=== PATIENT | female | born 2000 | race Caucasian/White ===

== ENCOUNTER 2019-06-15 11:07 | Day surgery (SDC) | payer OTHER ==
[~2019-06-15 11:07] MED LIST: CEFAZOLIN SODIUM 2 GM in DEXTROSE 5%-WATER 100 ML IV PRN
[2019-06-15 12:14] LABS: HEMATOCRIT 38.8 % (36.0-47.0); MEAN CORPUSCULAR HEMOGLOBIN 28.3 pg (27.0-33.4); MEAN CORPUSCULAR HGB CONC 33.6 g/dL (32.0-36.0); MEAN CORPUSCULAR VOLUME 84 fl (80-97); PLATELET COUNT 268 10^3/uL (150-450); RED CELL DISTRIBUTION WIDTH 12.5 % (11.5-14.0); WHITE BLOOD COUNT 7.2 10^3/uL (4.0-10.5)
[2019-06-15 12:37] LABS: ANION GAP 9 (5-19); BLOOD UREA NITROGEN 12 mg/dL (7-20); CALCIUM 9.6 mg/dL (8.4-10.2); CARBON DIOXIDE 26 mmol/L (22-30); CHLORIDE 103 mmol/L (98-107); GLUCOSE 82 mg/dL (75-110); POTASSIUM 4.1 mmol/L (3.6-5.0)
--- NOTE | 2019-06-15 12:44 | EKG REPORT ---
SEVERITY:- OTHERWISE NORMAL ECG - SINUS BRADYCARDIA : Confirmed by: Mark May MD 15-Jun-2019 12:43:06
--- NOTE | 2019-06-15 12:45 | RADIOLOGY REPORT (SQ) ---
EXAM DESCRIPTION: CHEST SINGLE VIEW COMPLETED DATE/TIME: 06/15/2019 12:32 pm REASON FOR STUDY: PREOP COMPARISON: None. EXAM PARAMETERS: NUMBER OF VIEWS: One view. TECHNIQUE: Single frontal radiographic view of the chest acquired. RADIATION DOSE: NA LIMITATIONS: None. FINDINGS: LUNGS AND PLEURA: No opacities, masses or pneumothorax. No pleural effusion. MEDIASTINUM AND HILAR STRUCTURES: No masses. Contour normal. HEART AND VASCULAR STRUCTURES: Heart normal in size. Normal vasculature. BONES: No acute findings. HARDWARE: None in the chest. OTHER: No other significant finding. IMPRESSION: NO ACUTE RADIOGRAPHIC FINDING IN THE CHEST. TECHNICAL DOCUMENTATION: JOB ID: [id number] [employer]- All Rights Reserved Reading location - IP/workstation name: [email or web address]
[2019-06-15] MEDS ORDERED: FAMOTIDINE INJ/PF 20 MG/2 ML SDV IV ONE (13:38)
[2019-06-15] MEDS ORDERED: SCOPOLAMINE HYDROBROMIDE 1.5 MG PATCH.TD72 ONE (13:38)
[2019-06-15] MEDS ORDERED: MIDAZOLAM 2 MG/2 ML INJ ONE (14:42)
[2019-06-15] MEDS ORDERED: PROPOFOL INJ 200 MG/20 ML VIAL IV ONE (14:42)
[2019-06-15] MEDS ORDERED: FENTANYL CITRATE INJ/PF 100 MCG/2 ML AMPUL ONE (14:42)
[2019-06-15] MEDS ORDERED: DEXAMETHASONE SOD PHOSPHATE INJ 4 MG/1 ML VIAL ONE (14:42)
[2019-06-15] MEDS ORDERED: ONDANSETRON HCL INJ/PF 4 MG/2 ML SDV ONE (14:42)
[2019-06-15] MEDS ORDERED: BUPIVACAINE HCL 0.5 % INJ/PF 30 ML SDV ONE (14:42)
[2019-06-15] MEDS ORDERED: KETOROLAC TROMETHAMINE 60 MG/2 ML SDV ONE (14:51)
[2019-06-15] MEDS ORDERED: MORPHINE SULFATE 10 MG/ML INJ IV PRN ×2 (15:31→17:03)
[2019-06-15] MEDS ORDERED: MEPERIDINE HCL/PF INJ 25 MG/1 ML DISP.SYRIN IV PRN (15:31)
[2019-06-15] MEDS ORDERED: ONDANSETRON HCL INJ/PF 4 MG/2 ML SDV IV PRN ×2 (15:31→17:03)
[2019-06-15] MEDS ORDERED: DIPHENHYDRAMINE HCL 50 MG/ML VIAL IV PRN (15:31)
[2019-06-15] MEDS ORDERED: FENTANYL CITRATE INJ/PF 100 MCG/2 ML AMPUL IV PRN ×3 (15:31)
[2019-06-15] MEDS ORDERED: PROMETHAZINE HCL INJ 25 MG/1 ML VIAL IV PRN ×2 (15:31)
[2019-06-15] MEDS ORDERED: ROPIVACAINE HCL 0.5% INJ/PF (5 MG/1 ML) 30 ML SDV ONE (16:23)
[2019-06-15] MEDS ORDERED: LIDOCAINE 2%/EPINEPHRINE INJ 20 ML VIAL ONE (16:23)
[2019-06-15] MEDS ORDERED: LIDOCAINE 2% INJ (20 MG/ML) 20 ML MDV ONE (16:23)
--- NOTE | 2019-06-15 16:54 | Discharge Summary ---
Discharge Summary (SDC) - Discharge Final Diagnosis: Right distal radius fracture. Date of Surgery: 06/15/19 Discharge Date: 06/15/19 Condition: Good Treatment or Instructions: Schedule Follow Up w/ Dr. Darnell Suarez @ [facility] for Surgery to be seen in 10-14 days or as scheduled [place]: [place]: [place]: Ice and elevate Keep splint clean/dry/intact, do not remove. If your fingers become numb please unwrap the Gigi wrap but leave the splint in place, if the sensation does not return within 30 minutes please return to the emergency department. May begin finger range of motion attempting to make full fist. Please use ibuprofen (Motrin or Advil) 600-800 mg every 8 hours as needed for pain or fever DO NOT TAKE w/ TORADOL may use once TORADOL complete. You may also use acetaminophen (Tylenol) 1000 mg every 4-6 hours as needed for pain or fever. Please be aware that many medications contain acetaminophen, do not exceed a total of 1000 mg of acetaminophen every 6 hours. If ibuprofen and acetaminophen are not sufficient for your pain you may take the Percocet/[place]. Please be aware that the Percocet/[place] does contain Tylenol. Stool softener of choice when on pain medication. USE OF [id number] IBUPROFEN: Ibuprofen (Advil, Nuprin, Medipren, Motrin IB) is a medication for fever and pain control. In addition, it has anti- inflammatory effects which may be beneficial, especially in the treatment of injuries. It's best to take ibuprofen with food. Persons with ulcer disease or allergy to aspirin should notify their physician of this before taking ibuprofen. Ibuprofen can be given every four to six hours, for a total of four doses daily. Age Pain or fever dose Antiinflammatory dose 6-8 yr 200 mg (1 tab) 200 mg (1 tab) 9-11 yr 200 mg (1 tab) 200-400 mg (1-2 tab) 11-14 yr 200-400 mg (1-2 tab) 400 mg (2 tab) 15-adult 400 mg (2 tab) 600 mg (3 tab) ORAL NARCOTIC MEDICATION: You have been given a prescription for pain control. This medication is a narcotic. It's best taken with food, as nausea can result if taken on an empty stomach. Don't operate machinery or drive within six hours of taking this medication. Do not combine this medicine with alcohol, or with any medication which can cause sedation (such as cold tablets or sleeping pills) unless you get permission from the physician. Narcotics tend to cause constipation. If possible, drink plenty of fluids and eat a diet high in fiber and fruits. Please be aware that prescription narcotics also have the potential for abuse. People become addicted to these medications because of the general sense of wellbeing that they induce. This feeling along with a significant reduction in tension, anxiety, and aggression provides a stimulating seductive quality to these drugs. Once your pain is under control, we encourage you to discard your unused narcotics. Follow-up Prescriptions: Oxycodone HCl/Acetaminophen [Percocet 5-325 mg Tablet] 1 tab PO Q6 PRN #25 tab PRN Reason: Referrals: JANICE OROZCO DO [Primary Care Provider] - Discharge Diet: As Tolerated Respiratory Treatments at Home: Deep Breathing/Coughing Discharge Activity: No Lifting Over 10 Pounds, No Lifting/Push/Pulling Report the Following to Your Physician Immediately: Fever over 101 Degrees, Unusual Bleeding, Redness, Swelling, Warmth, Increased Soreness
--- NOTE | 2019-06-15 16:57 | Operative Report ---
Operative Report DATE OF SURGERY: 06/15/19 PREOPERATIVE DIAGNOSIS: Intra-articular 2 part right distal radius fracture POSTOPERATIVE DIAGNOSIS: Same OPERATION: Open reduction to fixation right 2 part intra-articular distal radius fracture SURGEON: ANYI GAMBOA ANESTHESIA: GA COMPLICATIONS: None ESTIMATED BLOOD LOSS: Minimal PROCEDURE: Indication for above procedure: 18-year-old female who sustained a fall onto her right wrist. Patient had been seen at the emergency room where x-rays demonstrated distal radius fracture she subsequently followed up with me at which point we discussed treatment options including operative versus nonoperative intervention given the intra-articular nature and diastases decision was made to proceed with operative treatment. Risks and benefits were explained patient verbalized understanding consented for surgical procedure. Procedure In Detail: Patient was seen and evaluated in the preoperative holding area. The RIGHT upper extremity was initialized and marked. Patient received 2g of Ancef IV for bacterial prophylaxis. Patient was taken back to the operative room where transferred to the operative table and placed under general anesthesia. Once they were adequately anesthetized and a nonsterile tourniquet was placed on his upper extremity. A surgical team debriefing was performed ensuring all instrumentation was available, the surgical procedure was discussed with possible concerns reviewed. The upper extremity was prepped with chlorhexidine and alcohol and draped in a sterile fashion. A timeout was done identifying correct patient, procedure and extremity everyone in attendance agree with this and verbalized no concerns.The extremity was exsanguinated the tourniquet was inflated to 250 mmHg. A longitudinal skin incision was made via a volar approach of Trevin along the FCR tendon sheath. The FCR tendon sheath was opened and the FCR retracted ulnarly, the palmar cutaneous branch of the median nerve was identified and protected throughout the entirety of the case. The radial artery was identified and retracted radially. Blunt dissection was performed to the FPL which was carefully sweeped ulnarly. This brought me to the pronator quadratus which was elevated off of the distal radius via sharp dissection with a 15 blade to allow later repair. The radial styloid fracture fragment was then identified and a reduction maneuver was performed utilizing a [place] elevator. Radial styloid fragment was then secured with 2 K wires. A large reduction tenaculum was uti lized to reduce the articular diastases and step-off. C-arm fluoroscopy was obtained confirming christianity of articular alignment and acceptable reduction was then obtained. A Acumed 3 hole volar distal radius plate was placed into position and fixated with a K wire distally x2. AP and lateral radiographs were then obtained demonstrating appropriate placement of the plate and acceptable reduction of the fracture. Using a reduction tenaculum I was able to bring the plate down to bone distally. After drilling distally a cortical screw was used bringing the plate further down to bone, avoiding any liftoff of the plate from the volar cortex that could cause flexor tendon irritation post-operativley. Drilling the near cortex and to but not thru the far cortex a locking screw was then placed in the remaining holes. The previous cortex screw was removed and replaced with a locking screw. Two additional screws were placed into the styloid giving further stability to the radial styloid piece. AP and lateral radius were then done confirming appropriate placement of plate with no evidence of penetration intra-articular or within the DRUJ. I then turned my attention to the proximal screws. I drilled bicortically bringing the plate down to bone with a cortex screw. The remaining 2 holes proximally were drilled bicortically placing the appropriate size cortex in the proximal most hole and a locking screw in the distal shaft hole. AP and lateral radiographs were done confirming appropriate placement of the plate and reduction of the fracture there was christianity of radial height, radial inclination and volar tilt. No evidence of dorsal screw prominence or intra-articular penetration of the DRUJ or radiocarpal joint. A 3-4 portal was then established dorsally blunt dissection was performed and arthroscope introduced into the radiocarpal joint. Dry arthroscopy of the radiocarpal joint demonstrated acceptable reduction of the articular surface no evidence of diastases with less than 1 mm of step-off. There is no evidence of scapholunate abnormality. The wound was copiously irrigated with normal saline. There was no evidence of DRUJ instability on examination, Negative Stallings's test, No crepitus with range of motion at the radiocarpal joint or DRUJ. Tourniquet was deflated any peripheral bleeding was controlled with bipolar cautery until the wound was dry. The pronator quadratus was closed with interrupted 3-0 Vicryl suture. Subcutaneous tissues were closed with interrupted 4-0 Monocryl suture. The skin was closed with a running subcuticular 4-0 Monocryl suture which was reinforced with Dermabond and Steri-Strips. 20 mL of 0.5% Marcaine were injected for postoperative pain control. The tourniquet was then deflated. Was dressed with sterile 4 x 4's and patient was placed in a well-padded volar splint. Sponge counts, instrument counts and needle counts were correct. There was no intraoperative complications patient tolerated procedure well stable to PACU. Postoperative plan: Patient will be switched to a removal Exos at first postoperative followup visit and begin range of motion. Patient is encouraged to start vitamin C 500 mg d aily for 51 days. Will obtain radiographs at followup of the wrist.
[2019-06-15] MEDS ORDERED: OXYCODONE-ACETAMINOPHEN 5-325 MG TABLET PO PRN (17:03)
--- NOTE | 2019-06-15 19:03 | RADIOLOGY REPORT (SQ) ---
EXAM DESCRIPTION: WRIST RIGHT 3 VIEWS; NO CHG FLUORO COMPLETED DATE/TIME: 06/15/2019 6:24 pm REASON FOR STUDY: ORIF RT WRIST S52.571A OTH INTARTIC FRACTURE OF LOWER END OF RIGHT RADIUS, COMPARISON: None. FLUOROSCOPY TIME: 1 minutes 14 seconds Spot images saved to PACS. TECHNIQUE: Intra-operative images acquired during surgical procedure to evaluate progress. NUMBER OF IMAGES: 7 LIMITATIONS: None. FINDINGS: Fluoroscopy was provided for intraoperative procedure. Please refer to the operative repo rt further discussion. IMPRESSION: IMAGE(S) OBTAINED DURING PROCEDURE. COMMENT: Quality ID [id number]: Final reports for procedures using fluoroscopy that document radiation exp osure indices, or exposure time and number of fluorographic images (if radiation exposure indices are not available) Please consult full operative report of the attending physician for description of the procedure. TECHNICAL DOCUMENTATION: JOB ID: [id number] [employer]- All Rights Reserved Reading location - IP/workstation name: [email or web address]
--- NOTE | 2019-06-15 19:03 | RADIOLOGY REPORT (SQ) ---
EXAM DESCRIPTION: WRIST RIGHT 3 VIEWS; NO CHG FLUORO COMPLETED DATE/TIME: 06/15/2019 6:24 pm REASON FOR STUDY: ORIF RT WRIST S52.571A OTH INTARTIC FRACTURE OF LOWER END OF RIGHT RADIUS, COMPARISON: None. FLUOROSCOPY TIME: 1 minutes 14 seconds Spot images saved to PACS. TECHNIQUE: Intra-operative images acquired during surgical procedure to evaluate progress. NUMBER OF IMAGES: 7 LIMITATIONS: None. FINDINGS: Fluoroscopy was provided for intraoperative procedure. Please refer to the operative repo rt further discussion. IMPRESSION: IMAGE(S) OBTAINED DURING PROCEDURE. COMMENT: Quality ID [id number]: Final reports for procedures using fluoroscopy that document radiation exp osure indices, or exposure time and number of fluorographic images (if radiation exposure indices are not available) Please consult full operative report of the attending physician for description of the procedure. TECHNICAL DOCUMENTATION: JOB ID: [id number] [employer]- All Rights Reserved Reading location - IP/workstation name: [email or web address]
[2019-06-15 20:39] VITALS: BP 115/79
== END 2019-06-15 19:20 | disposition home or self-care (01) ==
LOC: OROUT 11:07
PROVIDERS: ATTEND Orthopaedic Surgery
DX: S52.571A Other intraarticular fracture of lower end of right radius, initial encounter for closed fracture (principal); W19.XXXA Unspecified fall, initial encounter
CPT/HCPCS: 36415; 85027; 81025; 80048; 71045; 73110; 93005; 93010; 25608; C1713 ×8; C1769; J2795; J2250; J3490 ×2; J0690; J1100; J1885; J3010; J2405; J7060; J2704; S0028; 01830